=== PATIENT | male | born 1950 | race Hispanic/Latino ===

== ENCOUNTER 2024-08-04 12:08 | Emergency (ER) | payer OTHER ==
[2024-08-04] MEDS ORDERED: HYDRALAZINE HCL 20 MG/ML VIAL ONE (12:48)
[2024-08-04 12:57] LABS: Absolute Basophils 0.1 K/uL (0-0.5); Absolute Eosinophils 0.2 K/uL (0-0.5); Absolute Lymphocytes (CBC) 1.6 K/uL (0.7-4.9); Absolute Monocytes 0.7 K/uL (0.1-1.3); Absolute Neutrophil 4.9 K/uL (1.8-8.0); Basophils % 0.8 % (0-1.3); Eosinophils % 2.8 % (0-4.4); Hematocrit 38.5 % (39.6-49.0); Hemoglobin 13.5 g/dL (13.6-17.9); Lymphocytes % 21.4 % (15.3-44.8); MCH 31.6 pg (27.0-35.0); MCV 90.2 fL (80-100); MPV 6.7 fL (7.6-11.3); Monocytes % 9.7 % (3.3-12.3); Neutrophils % 65.3 % (41.7-73.7); Platelets 244 thou/uL (152-406); RBC Red Blood Cell Count 4.27 M/uL (4.33-5.43); Red Cell Distribution Width 14.2 % (12.1-15.2)
[2024-08-04 13:15] LABS: Albumin 3.5 g/dL (3.4-5.0); Albumin/Globulin Ratio 0.9 (1.1-1.8); Anion Gap 9.2 mEq/L (5.0-15.0); Bilirubin Direct 0.2 mg/dL (0-0.2); Bilirubin Indirect, Calculated 0.8 mg/dL (0.2-0.8); Globulin 3.7 g/dL (2.3-3.5); Potassium 4.2 mEq/L (3.5-5.1); Protein, Total 7.2 g/dL (6.4-8.2); Troponin High Sensitivity 7.5 pg/mL (<58.9)
--- NOTE | 2024-08-04 15:52 | RAD REPORT ---
EXAM: Angio Aorta For Dissection HISTORY: [facility] MA[facility] no abd, back pain, htn Bed Name: 13 COMPARISON: None TECHNIQUE: Multiple contiguous axial images were obtained a CTA of the chest and abdomen with contras t per aortic dissection protocol. Sagittal and coronal 3-D MIP reformats were performed. One or more of the following dose reduction techniques were used: Automated exposure control, adjustment of the mA and kV according to patient size, and iterative reconstruction. Unless otherwise specified, incidental findings do not require dedicated imaging follow-up. FINDINGS: PULMONARY ARTERIES: Normal in caliber without filling defects to suggest pulmonary emboli. MEDIASTINUM: No hilar or mediastinal lymphadenopathy. Hypoattenuating bilateral thyroid nodules, largest on the right measuring up to 1.8 cm, not well eval uated LUNGS: No focal infiltrates or masses. Elevation of the right hemidiaphragm. PLEURAL SPACE: No pleural effusion or pneumothorax. LIVER: No focal lesions. Diffuse parenchymal hypoattenuation suggesting steatosis.. KIDNEYS: Unremarkable. SPLEEN: Unremarkable. PANCREAS: Unremarkable. Fat-containing 5 mm right adrenal nodule suggesting a small myelolipoma, benign. Status post cholecystectomy. BOWEL: No wall thickening or focal mass. Distal colonic diverticulosis without evidence of acute dive rticulitis.. RETROPERITONEUM: No lymphadenopathy BONES: Degenerative changes in the spine. Prostatomegaly. Supraumbilical midline hernia containing fat, measuring 2 cm in diameter at the neck. ASCENDING THORACIC AORTA: Normal caliber without evidence of dissection or aneurysmal dilatation. DESCENDING THORACIC AORTA: Normal caliber without evidence of dissection or aneurysmal dilatation. ABDOMINAL AORTA: Normal caliber without evidence of dissection or aneurysmal dilatation. Mild scatter ed calcific plaque. CELIAC TRUNK: Patent SMA: Patent BREANNA: Patent RENAL ARTERIES: Bilateral single renal arteries without significant atherosclerotic disease IMPRESSION: No evidence of thoracic or abdominal aortic aneurysm or dissection. No hemodynamically significant stenosis of the major aortic branches. Incidental findings as above.
--- NOTE | 2024-08-04 16:16 | EDPHYS ---
Physician Documentation [facility] Name: Dixon Silveira Age: 73 yrs Sex: Male : 1950 Arrival Date: 08/04/2024 Time: 12:08 Bed 13 Private MD: ED Physician Hong Wilson HPI: 08/04 14:44 This 73 yrs old Male presents to ER via Ambulatory with complaints of Fatigue, rt Weakness, Abdominal Pain. 14:44 Patient presents to the ED with an epigastric pain radiating to the back that has been rt present for several months. Patient has a history of hypertension but reportedly does not take his medicines because of that make him feel. States that he went to his primary care's office today where he was found to have an abnormal EKG, sent to the ED for further eval. Denies other acute complaints at this time, symptoms are moderate in severity, no other aggravating or alleviating factors.. Historical: - Allergies: 12:27 No Known Allergies; me1 - PMHx: 12:27 Hypertensive disorder; me1 - PSHx: 12:27 Appendectomy; Cholecystectomy; me1 - Immunization history:: Adult Immunizations up to date. - Infectious Disease History:: Denies. - Social history:: Smoking status: Patient/guardian denies using tobacco, but has a distant history of tobacco abuse. - Family history:: not pertinent. ROS: 14:44 Constitutional: Negative for fever, chills, and weight loss, Cardiovascular: Negative rt for chest pain, palpitations, and edema, Respiratory: Negative for shortness of breath, cough, wheezing, and pleuritic chest pain, MS/Extremity: Negative for injury and deformity, Skin: Negative for injury, rash, and discoloration, Neuro: Negative for headache, weakness, numbness, tingling, and seizure, 14:44 Abdomen/GI: Positive for abdominal pain, Negative for nausea and vomiting, Exam: 14:44 Constitutional: This is a well developed, well nourished patient who is awake, alert, rt and in no acute distress. Head/Face: Normocephalic, atraumatic. Chest/axilla: Normal chest wall appearance and motion. Nontender with no deformity. No lesions are appreciated. Cardiovascular: Regular rate and rhythm with a normal S1 and S2. No gallops, murmurs, or rubs. Normal PMI, no JVD. No pulse deficits. Respiratory: Lungs have equal breath sounds bilaterally, clear to auscultation and percussion. No rales, rhonchi or wheezes noted. No increased work of breathing, no retractions or nasal flaring. Abdomen/GI: Soft, non-tender, with normal bowel sounds. No distension or tympany. No guarding or rebound. No evidence of tenderness throughout. Skin: Warm, dry with normal turgor. Normal color with no rashes, no lesions, and no evidence of cellulitis. MS/ Extremity: Pulses equal, no cyanosis. Neurovascular intact. Full, normal range of motion. Neuro: Awake and alert, GCS 15, oriented to person, place, time, and situation. Cranial nerves II-XII grossly intact. Motor strength 5/5 in all extremities. Sensory grossly intact. Cerebellar exam normal. Normal gait. 14:44 ECG was reviewed by the Attending Physician. Vital Signs: 12:23 BP 204 / 77; Pulse 54; Resp 17; Temp 98; Pulse Ox 97% ; Weight 88 kg; Height 5 ft. 5 me1 in. ; Pain 9/10; 13:16 BP 165 / 70; Pulse 71; Resp 15; Pulse Ox 99% on R/A; ld1 14:05 BP 155 / 79; Pulse 70; Resp 18; Pulse Ox 99% on R/A; ld1 14:45 BP 183 / 85; Pulse 76; Resp 18; Pulse Ox 97% on R/A; ld1 16:46 BP 176 / 88; Pulse 88; Resp 18; Pulse Ox 99% on R/A; ld1 12:23 Body Mass Index 32.28 (88.00 kg, 165.1 cm) me1 12:23 Pain Scale: Adult me1 MDM: 12:29 Medical Screening Exam initiated rt 17:33 Data reviewed: vital signs, nurses notes. Consideration of Admission/Observation rt Escalation of care including admission/observation considered. No signs of endorgan dysfunction, mildly decreased creatinine, likely chronic in nature. Troponin is unremarkable. CT scan is unremarkable. Blood pressure is improving with treatment in the ED, he is instructed to follow-up as an outpatient.. I considered the following discharge prescriptions or medication management in the emergency department Medications were administered in the Emergency Department. See MAR. Independent interpretation of the following test(s) in the Emergency Department CT Scan: My interpretation is No aortic dissection seen on monitor potation of CT scan images. Care significantly affected by the following chronic conditions: Hypertension. Counseling: I had a detailed discussion with the patient and/or guardian regarding the historical points, exam findings, and any diagnostic results supporting the discharge/admit diagnosis, the presence of at least one elevated blood pressure reading (>120/80) during this emergency department visit, lab results, radiology results, the need for outpatient follow up, to return to the emergency department if symptoms worsen or persist or if there are any questions or concerns that arise at home. Response to treatment: the patient's symptoms have markedly improved after treatment. 08/04 12:39 Order name: Basic Metabolic Panel; Complete Time: 13:33 rt 08/04 12:39 Order name: CBC with Diff; Complete Time: 13:33 rt 08/04 12:39 Order name: LFT's; Complete Time: 13:33 rt 08/04 12:39 Order name: Troponin HS; Complete Time: 13:33 rt 08/04 12:39 Order name: Lipase; Complete Time: 13:33 rt 08/04 12:39 Order name: CT Aorta for Dissection; Complete Time: 15:53 rt 08/04 12:39 Order name: EKG; Complete Time: 12:39 rt 08/04 12:39 Order name: Cardiac monitoring; Complete Time: 12:46 rt 08/04 12:39 Order name: EKG - Nurse/Tech; Complete Time: 12:46 rt 08/04 12:39 Order name: IV Saline Lock; Complete Time: 12:46 rt 08/04 12:39 Order name: Labs collected and sent; Complete Time: 12:46 rt 08/04 12:39 Order name: O2 Per Protocol; Complete Time: 12:46 rt 08/04 12:39 Order name: O2 Sat Monitoring; Complete Time: 12:46 rt EC:44 Rate is 54 beats/min. Rhythm is regular, Sinus bradycardia with No ectopy, LVH with rt repolarization abnormality. Left axis deviation noted. DC interval is prolonged. QRS interval is normal. QT interval is normal. No Q waves. Administered Medications: 12:51 Drug: hydrALAZINE IVP 20 mg IVP once Route: IVP; Site: right antecubital; ld1 13:16 Follow up: Response: No adverse reaction ld1 Disposition Summary: 08/04/24 16:15 Discharge Ordered Notes: Location: Home rt Problem: an ongoing problem rt Symptoms: have improved rt Condition: Stable rt Diagnosis - Essential (primary) hypertension rt - Abdominal pain, unspecified rt Followup: rt - With: Private Physician - When: 2 - 3 days - Reason: Discharge Instructions: - Discharge Summary Sheet rt - Abdominal Pain, Adult rt - Hypertension, Adult rt Forms: - Medication Reconciliation Form rt - Antibiotic Education rt - Prescription Opioid Use rt - Patient Portal Instructions rt - Leadership Thank You Letter rt Prescriptions: - Miralax 17 gram/dose Oral powder - take 17 gram ORAL route daily as needed for constipation; 170 gram; Refills: 0, rt Product Selection Permitted - amlodipine 10 mg Oral tablet - take 1 tablet ORAL route daily; 30 tablet; Refills: 0, Product Selection rt Permitted - Protonix 40 mg Oral Tablet - take 1 tablet ORAL route once daily; 30 tablet; Refills: 0, Product Selection rt Permitted Signatures: Dispatcher [employer] Liana Wheatley RN RN ld1 Hong Wilson MD MD rt Kanchan Puga RN RN me1
--- NOTE | 2024-08-04 16:16 | ER ---
Nurse's Notes [facility] Name: Dixon Silveira Age: 73 yrs Sex: Male : 1950 Arrival Date: 08/04/2024 Time: 12:08 Bed 13 Private MD: Diagnosis: Essential (primary) hypertension;Abdominal pain, unspecified Presentation: 08/04 12:23 Chief complaint: Patient states: sent by Dr's office after getting an EKG. c/o me1 epigastric pain that radiates to his back. Pain /. C/o generalized weakness and fatigue for a few weeks. Coronavirus screen: Vaccine status: Patient reports receiving the 2nd dose of the covid vaccine. Ebola Screen: No symptoms or risks identified at this time. Initial Sepsis Screen: Does the patient meet any 2 criteria? No. Patient's initial sepsis screen is negative. Does the patient have a suspected source of infection? No. Patient's initial sepsis screen is negative. Risk Assessment: Do you want to hurt yourself or someone else? Patient reports no desire to harm self or others. Onset of symptoms is unknown. 12:23 Method Of Arrival: Ambulatory me1 12:23 Acuity: CYN 3 me1 Historical: - Allergies: 12:27 No Known Allergies; me1 - PMHx: 12:27 Hypertensive disorder; me1 - PSHx: 12:27 Appendectomy; Cholecystectomy; me1 - Immunization history:: Adult Immunizations up to date. - Infectious Disease History:: Denies. - Social history:: Smoking status: Patient/guardian denies using tobacco, but has a distant history of tobacco abuse. - Family history:: not pertinent. Screenin:58 [facility] ED Fall Risk Assessment (Adult) History of falling in the last 3 months, ld1 including since admission No falls in past 3 months (0 pts) Confusion or Disorientation No (0 pts) Intoxicated or Sedated No (0 pts) Impaired Gait No (0 pts) Mobility Assist Device Used No (0 pt) Altered Elimination No (0 pt) Score/Fall Risk Level 0 - 2 = Low Risk Oriented to surroundings, Hourly rounding (assess needs \T\ fall precautionary measures) done. Abuse screen: Denies threats or abuse. Denies injuries from another. Nutritional screening: No deficits noted. Tuberculosis screening: No symptoms or risk factors identified. Assessment: 13:58 General: Appears in no apparent distress. comfortable, Behavior is calm, cooperative, ld1 appropriate for age. Pain: Denies pain. Neuro: Level of Consciousness is awake, alert, obeys commands, Oriented to person, place, time, situation. Cardiovascular: Capillary refill < 3 seconds Patient's skin is warm and dry. Cardiovascular: Rhythm is sinus rhythm. Respiratory: Airway is patent Respiratory effort is even, unlabored. GI: Abdomen is round non-distended. : No signs and/or symptoms were reported regarding the genitourinary system. EENT: No signs and/or symptoms were reported regarding the EENT system. Derm: No signs and/or symptoms reported regarding the dermatologic system. Musculoskeletal: No signs and/or symptoms reported regarding the musculoskeletal system. 14:38 Reassessment: Patient appears in no apparent distress at this time. No changes from ld1 previously documented assessment. Patient and/or family updated on plan of care and expected duration. Pain level reassessed. Patient is alert, oriented x 3, equal unlabored respirations, skin warm/dry/pink. 14:45 Reassessment: Patient appears in no apparent distress at this time. No changes from ld1 previously documented assessment. Patient and/or family updated on plan of care and expected duration. Pain level reassessed. Patient is alert, oriented x 3, equal unlabored respirations, skin warm/dry/pink. 16:46 Reassessment: Patient appears in no apparent distress at this time. No changes from ld1 previously documented assessment. Patient and/or family updated on plan of care and expected duration. Pain level reassessed. Patient is alert, oriented x 3, equal unlabored respirations, skin warm/dry/pink. Vital Signs: 12:23 BP 204 / 77; Pulse 54; Resp 17; Temp 98; Pulse Ox 97% ; Weight 88 kg; Height 5 ft. 5 me1 in. ; Pain 9/10; 13:16 BP 165 / 70; Pulse 71; Resp 15; Pulse Ox 99% on R/A; ld1 14:05 BP 155 / 79; Pulse 70; Resp 18; Pulse Ox 99% on R/A; ld1 14:45 BP 183 / 85; Pulse 76; Resp 18; Pulse Ox 97% on R/A; ld1 16:46 BP 176 / 88; Pulse 88; Resp 18; Pulse Ox 99% on R/A; ld1 12:23 Body Mass Index 32.28 (88.00 kg, 165.1 cm) me1 12:23 Pain Scale: Adult me1 ED Course: 12:10 Patient arrived in ED. cj3 12:16 Hong Wilson MD is Attending Physician. rt 12:26 Triage completed. me1 12:27 Arm band placed on Patient placed in an exam room. me1 12:45 Patient has correct armband on for positive identification. Placed in gown. Bed in low ld1 position. Call light in reach. Side rails up X2. elevator service mechanic on. Pulse ox on. NIBP on. Door closed. Noise minimized. Warm blanket given. 12:45 No provider procedures requiring assistance completed. ld1 12:46 Inserted saline lock: 18 gauge in right antecubital area, using aseptic technique. ld1 Blood collected. Flushed with 10 mL NS. 13:58 Liana Cortez, RN is Primary Nurse. ld1 14:18 CT Aorta for Dissection In Process Unspecified. EDMS 16:46 IV discontinued, intact, bleeding controlled, No redness/swelling at site. ld1 Administered Medications: 12:51 Drug: hydrALAZINE IVP 20 mg IVP once Route: IVP; Site: right antecubital; ld1 13:16 Follow up: Response: No adverse reaction ld1 Medication: 13:58 VIS not applicable for this client. ld1 Outcome: 16:15 Discharge ordered by . rt 16:46 Discharged to home ambulatory, ld1 16:46 Condition: stable 16:46 Discharge instructions given to patient, family, Instructed on discharge instructions, follow up and referral plans. medication usage, Demonstrated understanding of instructions, follow-up care, medications, Prescriptions given X 3, 16:46 Patient left the ED. ld1 Signatures: Dispatcher [employer] EDMS Liana Cortez, ARNOLDO RN ld1 Hong Wilson MD MD rt Kanchan Puga RN RN me1 Nina Wallace [email or web address]
[2024-08-04 17:44] VITALS: TEMP 98
[2024-08-04 17:52] VITALS: BP 176/88; O2SAT 99
--- NOTE | 2024-08-09 17:02 | EKG ---
Test Date: 2024-08-04 Test Time: 12:34:16 Cook Dessert: Clair ALBERTS MEASUREMENT RESULTS: Intervals: Rate: 54 SD: 172 QRSD: 100 QT: 432 QTc: 409 [place]: P: 58 SD: 172 QRS: -44 T: -45 INTERPRETIVE STATEMENTS: Sinus bradycardia Left axis deviation Incomplete right bundle branch block Moderate voltage criteria for LVH, may be normal variant Nonspecific T wave abnormality Abnormal ECG No previous ECG available for comparison Electronically Signed On 08-09-24 16:56:24 CDT by Manuel Kirby
== END 2024-08-04 16:46 | disposition home or self-care (01) ==
LOC: ER 12:08
DX: I10 Essential (primary) hypertension (principal); R10.13 Epigastric pain
CPT/HCPCS: 85025; 80048; 36415; 80076; 84484; 83690; 71275; 74175; Q9967; J0360; 93005; 96374; 99285